=== PATIENT | female | born 1955 | race Caucasian/White ===

== ENCOUNTER 2021-06-05 22:51 | Emergency (ER) | payer OTHER ==
[2021-06-05 23:42] LABS: HEMOGLOBIN 12.7 gm/dl (12.3-15.3); RED BLOOD COUNT 4.1 M/UL (4.00-5.10); WHITE BLOOD COUNT 11.7 K/UL (4.5-11.0)
[2021-06-06] LABS: BUN/CREATININE RATIO 19 (0-10)
[2021-06-06] MEDS ORDERED: DOXYCYCLINE HY100 M2 PO (01:55)
[2021-06-06] MEDS ORDERED: DELSYM30 MG/5 ML PO (01:55)
[2021-06-06] MEDS ORDERED: MEDROL DOSEPAK 24 MG PO (01:55)
[2021-06-06] MEDS ORDERED: IPRAT-ALBUT 0.5-3 ML INH (01:55)
[2021-06-06] MEDS ORDERED: Nebulizer Machine (01:55)
== END 2021-06-06 02:02 | disposition home or self-care (01) ==
LOC: ER1 22:51
PROVIDERS: Physician Assistant Medical
DX: J44.1 Chronic obstructive pulmonary disease with (acute) exacerbation (principal); J44.0 Chronic obstructive pulmonary disease with (acute) lower respiratory infection; J20.9 Acute bronchitis, unspecified; Z90.710 Acquired absence of both cervix and uterus; F17.210 Nicotine dependence, cigarettes, uncomplicated; Z88.2 Allergy status to sulfonamides; Z20.822 Contact with and (suspected) exposure to COVID-19
CPT/HCPCS: 36600; 71045; 80053; 80307; 81001; 82550; 82553; 82803; 83874; 83880; 84484; 85025; 93005; 96374; 99285; J2930; U0002